=== PATIENT | female | born 1940 | race Caucasian/White ===

== ENCOUNTER 2023-06-22 17:13 | Emergency (ER) | payer MEDICARE, OTHER, SELFPAY ==
--- NOTE | 2023-06-22 17:23 | ED.GENMED ---
History of Present Illness
General
Chief Complaint: CVA/TIA Symptoms
Time Seen by Provider: 06/22/23 17:22
History of Present Illness
History of Present Illness:
HPI: Just before 1 PM, the patient was at her baseline neurologic status with history of dementia. She fell asleep from 1 PM until 3:30 PM. At 3:30 PM, 'she could not speak at all'. This lasted for over an hour but is currently speaking. Around
the time that she woke up, she is also having trouble walking but family noted no unilateral deficits. Currently she is at her baseline.
EXAM:
GENERAL: Appears in no distress
HEENT: Dry oral mucosa
CARDIOVASCULAR: Regular rate and rhythm
PULMONARY: No respiratory distress, breathing is nonlabored, equal and clear breath sounds
ABDOMEN: Soft and nontender with no peritoneal signs
NEUROLOGIC: The patient has evidence of dementia, not oriented to month or place, strength is equal in all extremities, she has no coordination deficits
EXTREMITIES: Moves all extremities equally, no tenderness, no edema
PYSCHIATRIC: Very limited historian, poor insight and judgment
ED COURSE:
5:35 PM: I initially evaluated patient
NUMBER AND COMPLEXITY OF PROBLEMS ADDRESSED AT THE ENCOUNTER
� Chronic conditions affecting care: The patient has had appendectomy/cholecystectomy, Alzheimer's dementia
� Acute Exacerbation and/or Progression of Chronic Illness: This is an acute problem
� Differential Diagnosis includes: TIA, CVA, intracranial hemorrhage, brain mass, electrolyte abnormality such as hyponatremia
AMOUNT AND/OR COMPLEXITY OF DATA TO BE REVIEWED AND ANALYZED
� I performed an independent evaluation of and my interpretation is:
EKG: Patient is in a sinus rhythm
CT: CT shows progression of volume loss otherwise no acute abnormality
X-rays:
Laboratory Studies: Other than slight hyponatremia, labs unremarkable
Other:
� Review of other/old records: Patient had a CAT scan of the brain that I reviewed in 2017
� Clinical information was obtained by an independent historian: I spoke to the daughter at bedside
� Prescriptions/Medications Considered but not given:
� Further testing considered but not performed:
RISK OF COMPLICATIONS AND/OR MORBIDITY OR MORTALITY OF PATIENT MANAGEMENT
� Social determinants of health affecting care: Lives at home
� Discussion with other providers: I discussed case with Dr. Alcaraz
� Escalation of care including admission/observation vs risk of discharge considered: Neurology suggested/recommended keeping the patient in the hospital. I spoke to the family at bedside. Daughter feels that she will be worse
if she is here in the hospital. She does have advanced dementia. Unclear etiology but suspect TIA as the main reason for visit today. She is known to Dr. Matos and will likely follow-up with him or she will try to follow-up with neurology
locally.
Past History
Past History
ED Past Medical History: Hypercholesterolemia
ED Past Surgical History: Appendectomy, Cholecystectomy and Tonsilectomy
Social History
Tobacco: Non-smoker
Alcohol: None
Drug: None
Personal:
Phy Exam
Physical Exam
Physical Exam:
See HPI
Course
Orders/Labs/Results
Orders:
Orders
06/22/23 17:36
EKG [Electrocardiogram (*1)] Urgent
Reason for Study: Fatigue / Weakness
06/22/23 17:37
EKG- Treatment ONCE
06/22/23 17:38
Complete Blood Count/With Diff Urgent
Comprehensive Metabolic Panel Urgent
06/22/23 17:42
CT Head W/o Iv Contrast Urgent
Comment:
Reason For Exam: resolved aphasia
Abnormal Lab Results
06/22/23
17:38
Hct 36.7 L %
(37.0-47.0)
MPV 10.8 H fL
(7.4-10.4)
Absolute Monos (auto) 0.7 H 10^3/uL
(0.1-0.6)
Sodium 133 L mmol/L
(135-145)
BUN 26 H mg/dl
(7-17)
Glucose 122 H mg/dl
(70-99)
Alkaline Phosphatase 141 H U/L
(38-126)
06/22/23 17:38
06/22/23 17:38
Vital Signs
Initial and Last Documented VS:
Initial Vital Signs
BP
115/64
06/22/23 17:29
Last Documented Vital Signs
Temp Pulse Resp BP Pulse Ox
98.8 F 83 16 107/63 99
06/22/23 17:30 06/22/23 18:45 06/22/23 18:45 06/22/23 18:00 06/22/23 18:45
*Critical Care Note
Total Time (30-74mins, 75-104mins- exclusive of procedures): Not Applicable
ED Attending Note
-
Portions of this chart may have been created with voice recognition software.� Occasional wrong word or��sound alike� substitutions may have occurred due to the inherent limitations of voice recognition software.
Discharge Plan
Departure
Patient Disposition: Home (Routine Discharge)
Date of Disposition: 06/22/23
Time of Disposition: 19:59
Patient with high blood pressure during this ER visit?: No
Discharge Problem:
TIA (transient ischemic attack)
Prescriptions:
No Action
atorvastatin 40 mg tablet
40 mg PO DAILY
cetirizine [Zyrtec] 10 mg Tablet
10 mg PO DAILY
cyanocobalamin (vitamin B-12) [Vitamin B-12] 1,000 mcg Tablet
1,000 mcg PO DAILY
calcium carbonate [Calcium 500] 500 mg calcium (1,250 mg) Tablet
500 mg PO DAILY
ipratropium bromide 21 mcg (0.03 %) spray,non-aerosol
2 spray INTRANASAL BID
insulin asp prt-insulin aspart [Novolog Mix 70-30FlexPen U-100] 100 unit/mL (70-30) insulin pen
17 unit SC DAILY
insulin asp prt-insulin aspart [Novolog Mix 70-30FlexPen U-100] 100 unit/mL (70-30) insulin pen
5 unit SC QPM
Referrals:
Jalil Mulligan MD [Family Provider] -
Dajuan Amador MD [Active] - Follow up in 2-3 days
Oneil Matos MD [Non-Admitting Privileges] - Follow up in 2-3 days
Ann Marie Alcaraz DO [Active] - Follow up in 2-3 days
Activity Restrictions/Additional Instructions:
The CAT scan of the brain shows no acute abnormality however we do see progression of 'moderate to severe bilateral temporal lobe volume loss consistent with chronic neurodegenerative disease such as Alzheimer's in comparison to 10/04/2016. 'There is
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 I was in communication with Dr. Alcaraz -you could try following up with either her or Dr. Amador. You may also just want to try calling Dr. Matos. We also
recommend that you start taking a baby aspirin daily.
Interventions
Interventions:
*Risk Screen - Suicide Last Done: 06/22/23 17:36
*General Assessment Last Done: 06/22/23 17:37
*Neglect/Abuse Screening Last Done: 06/22/23 17:36
ED- Fall Risk Assessment Last Done: 06/22/23 17:56
*ED COVID-19 Vaccine History Last Done: 06/22/23 17:37
*Nursing Disposition Last Done: 06/22/23 20:24
ED- Pulmonary Assessment Last Done: 06/22/23 17:56
ED- Neurological Assessment Last Done: 06/22/23 17:56
ED- Cardiac Assessment Last Done: 06/22/23 17:56
Discharge Date and Time
Discharge Date/Time: 06/22/23 20:25
[2023-06-22 17:27] VITALS: BMI 21.0
[2023-06-22 17:29] VITALS: BP 115/64
[2023-06-22 17:30] VITALS: BP 115/64
[2023-06-22 17:58] LABS: % Basophils 0.5 % (0-2); % Eosinophils 3.3 % (0-6); % Immature Granulocytes 0.4 % (0-0.5); % Lymphocytes 20.7 % (20.5-51.1); % Monocytes 8.1 % (1.7-9.3); Absolute Eosinophils 0.3 10^3/uL (0-0.7); Absolute Lymphocytes 1.7 10^3/uL (1.2-3.4); Absolute Monocytes 0.7 10^3/uL (0.1-0.6); Absolute Neutrophils 5.5 10^3/uL (1.4-6.5); Hematocrit 36.7 % (37.0-47.0); Hemoglobin 12.7 g/dL (12.0-16.0); Mean Corp Hgb Conc. 34.6 g/dL (33.0-37.0); Mean Corpuscular Volume 86.8 fL (81.0-99.0); Mean Platelet Volume 10.8 fL (7.4-10.4); Nucleated Red Blood Cells % 0 %; Platelet Count 278 10^3/uL (130-400); Red Blood Cell Count 4.23 10^6/uL (4.20-5.40); Red Cell Dist. Width 12.4 % (11.5-14.5); White Blood Cell Count 8.2 10^3/uL (4.8-10.8)
[2023-06-22 18:00] VITALS: BP 107/63
[2023-06-22 18:15] LABS: ALT (SGPT) 25 U/L (0-35); AST (SGOT) 29 U/L (14-36); Albumin 4.3 g/dl (3.5-5.0); Alkaline Phosphatase 141 U/L (38-126); Blood Urea Nitrogen 26 mg/dl (7-17); Calcium 9.7 mg/dl (8.4-10.2); Carbon Dioxide 23 mmol/L (22-30); Chloride 103 mmol/L (98-107); Estimated Creatinine Clearance 37 ml/min; Glucose 122 mg/dl (70-99); Potassium 4.6 mmol/L (3.5-5.1); Sodium 133 mmol/L (135-145); Total Protein 7.2 g/dl (6.3-8.2); eGFR > 60.00
== END 2023-06-22 20:25 | disposition home or self-care (01) ==
LOC: EMR 17:13
PROVIDERS: EMERGENCY PHYSICIAN Emergency Medicine; FAMILY PHYSICIAN Family Medicine
DX: G45.9 Transient cerebral ischemic attack, unspecified (principal); E78.00 Pure hypercholesterolemia, unspecified; G30.9 Alzheimer's disease, unspecified; F02.80 Dementia in other diseases classified elsewhere, unspecified severity, without behavioral disturbance, psychotic disturbance, mood disturbance, and anxiety
CPT/HCPCS: 99284; 70450; 80053; 85025; 93005